=== PATIENT | male | born 1960 | race Caucasian/White ===

== ENCOUNTER 2024-06-16 03:50 | Emergency (ER) | payer MEDICARE ==
[~2024-06-16] VITALS: Ht 167.6 cm; Wt 68.0 kg
[2024-06-16] MEDS ORDERED: HyDROXyzine HCl 25 MG Tab PO ONE (06:30)
[2024-06-16] MEDS ORDERED: HYDHCL25 PO (06:30)
== END 2024-06-16 06:40 | disposition home or self-care (01) ==
LOC: ER 03:50
DX: F41.9 Anxiety disorder, unspecified (principal); I10 Essential (primary) hypertension; Z79.899 Other long term (current) drug therapy
CPT/HCPCS: 99283; A9270